=== PATIENT | male | born 1945 | race Two or more races ===

== ENCOUNTER 2023-01-06 21:13 | Inpatient (IN) | payer OTHER, MEDICAID ==
[~2023-01-06] VITALS: Ht 165.1 cm; Wt 88.2 kg
[2023-01-06 22:15] VITALS: PULSE 83; RESP 22; O2SAT 95
[2023-01-06 22:25] LABS: Basophils # (auto) 0.1 10 ^3/uL (0-0.2); Basophils % (auto) 0.5 % (0.0-2.0); Eosinophils # (auto) 0.5 10 ^3/uL (0-0.8); Hemoglobin 9.1 g/dL (13.5-17.5); Lymphocytes # (auto) 1.3 10 ^3/uL (0.4-5.4)
[2023-01-06 22:26] LABS: Eosinophils % (auto) 4.5 % (0.0-7.0); Hematocrit 29.5 % (41.0-53.0); Lymphocytes % (auto) 12.2 % (10.0-50.0); Mean Corpuscular Hemoglobin 19.7 pg (28.0-32.0); Mean Corpuscular Hgb Conc. 30.8 g/dL (32.0-36.0); Mean Corpuscular Volume 64.1 fL (80.0-100.0); Monocytes # (auto) 1.1 10 ^3/uL (0-1.3); Monocytes % (auto) 10.1 % (0.0-12.0); Neutrophils # (auto) 7.9 10 ^3/uL (1.6-8.6); Neutrophils % (auto) 72.7 % (37.0-80.0); White Blood Cell 10.8 10^3/uL (4.4-10.8)
[2023-01-06 22:27] LABS: Red Cell Distribution Width 20.8 % (11.8-14.3)
[2023-01-06 22:29] LABS: Albumin 2.8 g/dL (3.4-5.0); Calcium 9.6 mg/dL (8.5-10.1); Magnesium 2.8 mg/dL (1.6-2.6); Potassium 3.4 mmol/L (3.5-5.1)
[2023-01-06 22:34] LABS: BUN/Creatinine Ratio 17.9 (10.0-20.0); Bilirubin, Total 0.3 mg/dL (0.2-1.0); Total Protein 7.5 g/dL (6.4-8.2)
[2023-01-06 22:47] LABS: Platelet Estimate Increased
[2023-01-06 22:48] LABS: Hypochromia Moderate
[2023-01-06 22:49] LABS: Anisocytosis Slight
[2023-01-06 22:50] LABS: Stomatocytes Moderate
[2023-01-06 22:51] LABS: Ovalocytes MODE
[2023-01-06 23:47] LABS: INR 1.08 (0.9-1.15); Partial Thromboplastin Time 35.3 SEC (24.5-34.5); Prothrombin Time 11.3 sec (9.3-11.8)
[2023-01-07 00:08] LABS: Urine Bacteria NONE SEEN /hpf (None Seen); Urine Blood Negative /uL (Negative); Urine Clarity Clear (Clear); Urine Color Straw (Yellow); Urine Protein, UAD Negative (Negative); Urine Specific Gravity 1.002 (1.001-1.035); Urine Urobilinogen Normal (Negative); Urine WBC <1 /hpf (0 - 3); Urine pH 6.5 (5.0-8.0)
[2023-01-07] MEDS ORDERED: DOCUSATE SOD 100 MG CAP PO PRN (05:00)
[2023-01-07] MEDS ORDERED: ONDANSETRON HCL 4 MG/2 ML VIAL IV PRN (05:00)
[2023-01-07] MEDS ORDERED: hydrALAZINE HCL 20 MG/ML VL IV PRN (05:00)
[2023-01-07] MEDS ORDERED: ACETAMINOPHEN 325 MG TAB PO PRN (05:00)
[2023-01-07] MEDS ORDERED: HYDROcodone-ACET 5/325MG TAB PO PRN (05:00)
[2023-01-07] MEDS ORDERED: NITROGLYCERIN 0.4 MG SL TAB SL PRN (06:00)
[2023-01-07] MEDS ORDERED: POTASSIUM CHL 20 Meq TABLET PO ONE ×2 (06:00→10:00)
[2023-01-07] MEDS ORDERED: MORPHINE SULFATE INJ 2 MG/ml SYRG IV PRN (06:00)
[2023-01-07] MEDS: SODIUM CHLOR 0.9% PF (SALINE LOCK) 10ML VIAL/SYR IV SCH ×3 (06:02→22:22)
[2023-01-07 07:15] LABS: Hemoglobin 9.4 g/dL (13.5-17.5)
[2023-01-07 07:16] LABS: Basophils # (auto) 0 10 ^3/uL (0-0.2); Basophils % (auto) 0.3 % (0.0-2.0); Eosinophils # (auto) 0.2 10 ^3/uL (0-0.8); Eosinophils % (auto) 2.1 % (0.0-7.0); Hematocrit 30.1 % (41.0-53.0); Lymphocytes # (auto) 1.8 10 ^3/uL (0.4-5.4); Lymphocytes % (auto) 15.8 % (10.0-50.0); Mean Corpuscular Hgb Conc. 31.2 g/dL (32.0-36.0); Mean Corpuscular Volume 64.2 fL (80.0-100.0); Monocytes % (auto) 8.7 % (0.0-12.0); Neutrophils # (auto) 8.1 10 ^3/uL (1.6-8.6); Neutrophils % (auto) 73.1 % (37.0-80.0); Nucleated Red Blood Cells % 0.1 %; Red Blood Cells 4.69 10^6/uL (4.5-5.90); White Blood Cell 11.1 10^3/uL (4.4-10.8)
[2023-01-07 07:25] VITALS: PULSE 80; RESP 22; O2SAT 94
[2023-01-07 07:26] LABS: Albumin 2.9 g/dL (3.4-5.0); Calcium 9.6 mg/dL (8.5-10.1); Potassium 3.4 mmol/L (3.5-5.1)
[2023-01-07 07:29] LABS: BUN/Creatinine Ratio 12.1 (10.0-20.0); Bilirubin, Total 0.4 mg/dL (0.2-1.0); Total Protein 7.9 g/dL (6.4-8.2)
[2023-01-07 07:35] LABS: Red Cell Distribution Width 21.1 % (11.8-14.3)
[2023-01-07 09:10] LABS: Platelet Estimate Increased
[2023-01-07 09:11] LABS: Anisocytosis Slight; Hypochromia Moderate
[2023-01-07] MEDS: amLODIPine BESYLATE 5 MG TAB PO SCH (10:14)
[2023-01-07 10:30] LABS: Cholesterol 165 mg/dL (< 200)
[2023-01-07 10:33] LABS: HDL Cholesterol 29 mg/dL (40-59); LDL Cholesterol 125 mg/dL (< 100); Triglycerides 63 mg/dL (< 150)
[2023-01-07 12:23] LABS: % Iron Saturation 3.4 % (20-55)
[2023-01-07 19:30] VITALS: PULSE 90; RESP 17; O2SAT 95
[2023-01-07 21:26] VITALS: PULSE 90
[2023-01-07 21:51] VITALS: BP 143/77; PULSE 84; RESP 17; TEMP 97.5; O2SAT 96
[2023-01-07 21:52] VITALS: BP 143/77; PULSE 84; RESP 17; TEMP 97.5; O2SAT 96
[2023-01-07] MEDS ORDERED: TAMS0.4C36 PO (22:47)
[2023-01-07] MEDS ORDERED: AMLO1TAB22 PO (22:47)
[2023-01-07] MEDS ORDERED: BUSP15TA60 PO (22:47)
[2023-01-07] MEDS ORDERED: HYDR-3682 PO (22:47)
[2023-01-08] VITALS (8 sets, daily range): BP systolic 140–149; BP diastolic 70–94; PULSE 39–113; RESP 15–20; TEMP 97.8–98.2; O2SAT 95–98
[2023-01-08] MEDS: SODIUM CHLOR 0.9% PF (SALINE LOCK) 10ML VIAL/SYR IV SCH ×3 (06:10→21:10)
[2023-01-08 09:48] LABS: Basophils # (auto) 0.1 10 ^3/uL (0-0.2); Basophils % (auto) 0.4 % (0.0-2.0); Eosinophils # (auto) 0.3 10 ^3/uL (0-0.8); Eosinophils % (auto) 2.6 % (0.0-7.0); Hematocrit 29.9 % (41.0-53.0); Hemoglobin 9.4 g/dL (13.5-17.5); Lymphocytes % (auto) 8.8 % (10.0-50.0); Mean Corpuscular Hgb Conc. 31.4 g/dL (32.0-36.0); Mean Corpuscular Volume 63.5 fL (80.0-100.0); Monocytes % (auto) 8.5 % (0.0-12.0); Neutrophils # (auto) 9.5 10 ^3/uL (1.6-8.6); Neutrophils % (auto) 79.7 % (37.0-80.0); Nucleated Red Blood Cells % 0.1 %; Red Blood Cells 4.72 10^6/uL (4.5-5.90)
[2023-01-08 09:50] LABS: Red Cell Distribution Width 20.9 % (11.8-14.3); White Blood Cell 11.9 10^3/uL (4.4-10.8)
[2023-01-08] MEDS: amLODIPine BESYLATE 5 MG TAB PO SCH (10:00)
[2023-01-08 10:08] LABS: Albumin 2.9 g/dL (3.4-5.0); Calcium 9.7 mg/dL (8.5-10.1); Potassium 3.8 mmol/L (3.5-5.1)
[2023-01-08 10:11] LABS: BUN/Creatinine Ratio 13.9 (10.0-20.0); Bilirubin, Total 0.4 mg/dL (0.2-1.0); Total Protein 7.1 g/dL (6.4-8.2)
[2023-01-08] MEDS ORDERED: SODIUM FERR GLUC 62.5MG/5ML 125 MG in SODIUM CHL 0.9% 100 ML IV ONE (15:00)
[2023-01-08] MEDS: LORazepam 2MG/ML-1ML VIAL IV PRN (16:44)
[2023-01-08] MEDS: busPIRone HCL 10 MG TAB PO SCH (21:10)
[2023-01-08] MEDS ORDERED: HALOPERIDOL LACTATE 5 MG/ML INJ VIAL IV PRN (21:45)
[2023-01-09] MEDS: LORazepam 2MG/ML-1ML VIAL IV PRN (01:34)
[2023-01-09 05:00] VITALS: BP 133/61; PULSE 77; RESP 18; TEMP 98; O2SAT 96
[2023-01-09 05:48] LABS: Eosinophils # (auto) 0.2 10 ^3/uL (0-0.8); Hemoglobin 8.9 g/dL (13.5-17.5); Mean Corpuscular Hemoglobin 19.9 pg (28.0-32.0)
[2023-01-09 05:50] LABS: Basophils # (auto) 0.1 10 ^3/uL (0-0.2); Basophils % (auto) 0.4 % (0.0-2.0); Eosinophils % (auto) 1.2 % (0.0-7.0); Hematocrit 28.7 % (41.0-53.0); Lymphocytes # (auto) 1.6 10 ^3/uL (0.4-5.4); Lymphocytes % (auto) 11.2 % (10.0-50.0); Mean Corpuscular Hgb Conc. 31.1 g/dL (32.0-36.0); Mean Corpuscular Volume 64.1 fL (80.0-100.0); Monocytes # (auto) 1.2 10 ^3/uL (0-1.3); Monocytes % (auto) 8.9 % (0.0-12.0); Neutrophils # (auto) 10.9 10 ^3/uL (1.6-8.6); Neutrophils % (auto) 78.3 % (37.0-80.0); Red Blood Cells 4.47 10^6/uL (4.5-5.90)
[2023-01-09 06:03] LABS: Red Cell Distribution Width 20.6 % (11.8-14.3)
[2023-01-09 06:04] LABS: Potassium 3.7 mmol/L (3.5-5.1)
[2023-01-09 06:08] LABS: Albumin 2.6 g/dL (3.4-5.0); BUN/Creatinine Ratio 21.2 (10.0-20.0); Calcium 9.5 mg/dL (8.5-10.1); Magnesium 2.4 mg/dL (1.6-2.6)
[2023-01-09 06:10] LABS: Bilirubin, Total 0.4 mg/dL (0.2-1.0); Total Protein 7.3 g/dL (6.4-8.2)
[2023-01-09] MEDS: SODIUM CHLOR 0.9% PF (SALINE LOCK) 10ML VIAL/SYR IV SCH ×3 (06:38→21:28)
[2023-01-09] MEDS ORDERED: VANCOMYCIN PER PHARMACY 0 MG IV ONE (07:45)
[2023-01-09] MEDS ORDERED: MIDAZOLAM HCL 2MG/2ML 2ml VIAL (1mg/ml) ONE (07:47)
[2023-01-09] MEDS ORDERED: fentaNYL CITRATE 100 MCG/2 ML VL ONE (07:47)
[2023-01-09] MEDS ORDERED: VANCOMYCIN HCL 1000 MG VL ONE (07:47)
[2023-01-09] MEDS ORDERED: VANCOMYCIN 1GM/250ML 250 ML IV ONE (07:48)
[2023-01-09 08:00] VITALS: BP 131/79; PULSE 80; PULSE 88; RESP 18; TEMP 98; O2SAT 96
[2023-01-09] MEDS ORDERED: HALOPERIDOL LACTATE 5 MG/ML INJ VIAL IM ONE (08:00)
[2023-01-09 08:25] LABS: Carcinoembryonic Antigen 0.51 ng/mL (<5.0 OR =)
[2023-01-09 08:26] LABS: Folate (Folic Acid) 9.44 ng/mL (5.38-24)
[2023-01-09] MEDS ORDERED: LORazepam 2MG/ML-1ML VIAL IV ONE (08:30)
[2023-01-09] MEDS: busPIRone HCL 10 MG TAB PO SCH ×2 (09:40→21:26)
[2023-01-09] MEDS: amLODIPine BESYLATE 5 MG TAB PO SCH (09:40)
[2023-01-09] MEDS ORDERED: SODIUM FERR GLUC 62.5MG/5ML 125 MG in SODIUM CHL 0.9% 100 ML IV SCH (12:00)
[2023-01-09] MEDS: cefTRIAXone 1GM/50ML D5W 50 ML IV SCH ×2 (12:12→21:32)
[2023-01-09 13:00] VITALS: BP 136/70; PULSE 80; RESP 18; TEMP 98; O2SAT 96
[2023-01-09] MEDS ORDERED: DOPamine 1600MCG/ML D5W 250 ML IV SCH (13:15)
[2023-01-09 16:19] VITALS: BP 141/72; PULSE 72; RESP 20; TEMP 98.1; O2SAT 100
[2023-01-09 20:00] VITALS: BP 134/74; PULSE 86; PULSE 90; RESP 16; RESP 18; TEMP 97.8; O2SAT 96
[2023-01-09 22:00] VITALS: BP 134/74; PULSE 86; RESP 14; TEMP 97.8; O2SAT 95
[2023-01-10 05:00] VITALS: BP 144/81; PULSE 86; RESP 14; TEMP 98.1; O2SAT 96
[2023-01-10] MEDS: SODIUM CHLOR 0.9% PF (SALINE LOCK) 10ML VIAL/SYR IV SCH ×3 (05:38→22:09)
[2023-01-10 06:47] LABS: Basophils # (auto) 0 10 ^3/uL (0-0.2); Eosinophils # (auto) 0.3 10 ^3/uL (0-0.8); Hemoglobin 9.9 g/dL (13.5-17.5)
[2023-01-10 06:50] LABS: Basophils % (auto) 0.2 % (0.0-2.0); Eosinophils % (auto) 2.3 % (0.0-7.0); Hematocrit 31.8 % (41.0-53.0); Lymphocytes # (auto) 1.4 10 ^3/uL (0.4-5.4); Mean Corpuscular Hemoglobin 20.1 pg (28.0-32.0); Mean Corpuscular Hgb Conc. 31.3 g/dL (32.0-36.0); Mean Corpuscular Volume 64.1 fL (80.0-100.0); Monocytes # (auto) 1.1 10 ^3/uL (0-1.3); Monocytes % (auto) 8.4 % (0.0-12.0); Neutrophils # (auto) 10.2 10 ^3/uL (1.6-8.6); Neutrophils % (auto) 78.1 % (37.0-80.0); Red Blood Cells 4.95 10^6/uL (4.5-5.90)
[2023-01-10 07:02] LABS: Potassium 3.2 mmol/L (3.5-5.1)
[2023-01-10 07:06] LABS: Red Cell Distribution Width 20.9 % (11.8-14.3)
[2023-01-10 07:08] LABS: Albumin 2.9 g/dL (3.4-5.0); BUN/Creatinine Ratio 12.7 (10.0-20.0); Bilirubin, Total 0.5 mg/dL (0.2-1.0); Calcium 10.1 mg/dL (8.5-10.1); Total Protein 8.4 g/dL (6.4-8.2)
[2023-01-10] MEDS ORDERED: fentaNYL CITRATE 100 MCG/2 ML VL ONE (07:18)
[2023-01-10] MEDS ORDERED: KETAMINE HCL 10 ML ONE (07:18)
[2023-01-10] MEDS ORDERED: ONDANSETRON HCL 4 MG/2 ML VIAL ONE (07:18)
[2023-01-10] MEDS ORDERED: MIDAZOLAM HCL 2MG/2ML 2ml VIAL (1mg/ml) ONE (07:18)
[2023-01-10] MEDS ORDERED: PROPOFOL 10 MG/ML 20 ML IV ONE ×2 (07:18→09:28)
[2023-01-10] MEDS ORDERED: SODIUM CHLORIDE LOCK 20 ML ONE (07:18)
[2023-01-10] MEDS ORDERED: SUCCINYLCHOLINE CHLORIDE 20 MG/ML 10ML VIAL IV ONE (07:24)
[2023-01-10] MEDS ORDERED: VANCOMYCIN 1GM/250ML 250 ML IV ONE (07:33)
[2023-01-10] MEDS ORDERED: POTASSIUM EFFERVESENT TAB 25 MEQ PO ONE (08:00)
[2023-01-10] MEDS ORDERED: LIDOCAINE 2%HCL (LOCAL ANESTH.) INJ 20ML MDV ONE (08:00)
[2023-01-10] MEDS ORDERED: IODIXANOL 320MG/ML 100ML BTL IV ONE (08:00)
[2023-01-10] MEDS ORDERED: VANCOMYCIN HCL 1000 MG VL ONE (08:39)
[2023-01-10] MEDS ORDERED: HALOPERIDOL LACTATE 5 MG/ML INJ VIAL IM ONE (10:15)
[2023-01-10] MEDS ORDERED: HALOPERIDOL LACTATE 5 MG/ML INJ VIAL ONE (10:27)
[2023-01-10] MEDS ORDERED: HYDROcodone-ACET 5/325MG TAB PO PRN (12:15)
[2023-01-10] MEDS: busPIRone HCL 10 MG TAB PO SCH ×2 (12:42→21:20)
[2023-01-10] MEDS: cefTRIAXone 1GM/50ML D5W 50 ML IV SCH ×2 (12:46→21:20)
[2023-01-10] MEDS: amLODIPine BESYLATE 5 MG TAB PO SCH (12:46)
[2023-01-10] MEDS: IRON SUCROSE COMPLEX 200 MG in SODIUM CHL 0.9% 100 ML IV SCH (13:04)
[2023-01-10 13:13] VITALS: BP 191/75; PULSE 84; RESP 18; TEMP 97.4; O2SAT 95
[2023-01-10 20:00] VITALS: PULSE 103; PULSE 93; RESP 22; O2SAT 94
[2023-01-10 22:00] VITALS: BP 137/80; PULSE 93; RESP 22; TEMP 98.2; O2SAT 94
[2023-01-10] MEDS: VANCOMYCIN 1GM/250ML 250 ML IV SCH (22:04)
[2023-01-11 05:00] VITALS: BP 148/82; PULSE 87; RESP 18; TEMP 97.8; O2SAT 92
[2023-01-11] MEDS: SODIUM CHLOR 0.9% PF (SALINE LOCK) 10ML VIAL/SYR IV SCH ×2 (05:47→14:27)
[2023-01-11 07:14] LABS: Basophils # (auto) 0 10 ^3/uL (0-0.2); Eosinophils # (auto) 0.2 10 ^3/uL (0-0.8); Hemoglobin 9.4 g/dL (13.5-17.5); Mean Corpuscular Hemoglobin 19.9 pg (28.0-32.0); Nucleated Red Blood Cells % 0.1 %
[2023-01-11 07:18] LABS: Basophils % (auto) 0.2 % (0.0-2.0); Eosinophils % (auto) 1.3 % (0.0-7.0); Hematocrit 30.3 % (41.0-53.0); Lymphocytes # (auto) 1.5 10 ^3/uL (0.4-5.4); Lymphocytes % (auto) 11.6 % (10.0-50.0); Mean Corpuscular Hgb Conc. 30.9 g/dL (32.0-36.0); Mean Corpuscular Volume 64.3 fL (80.0-100.0); Monocytes # (auto) 1.3 10 ^3/uL (0-1.3); Monocytes % (auto) 10.6 % (0.0-12.0); Neutrophils # (auto) 9.6 10 ^3/uL (1.6-8.6); Neutrophils % (auto) 76.3 % (37.0-80.0); Red Blood Cells 4.72 10^6/uL (4.5-5.90); White Blood Cell 12.5 10^3/uL (4.4-10.8)
[2023-01-11 07:23] LABS: Red Cell Distribution Width 20.6 % (11.8-14.3)
[2023-01-11 07:59] LABS: Potassium 3.8 mmol/L (3.5-5.1)
[2023-01-11 08:00] VITALS: PULSE 68; PULSE 93; RESP 22; O2SAT 94
[2023-01-11 08:05] LABS: Albumin 2.5 g/dL (3.4-5.0); BUN/Creatinine Ratio 16.1 (10.0-20.0); Bilirubin, Total 0.4 mg/dL (0.2-1.0); Calcium 9.8 mg/dL (8.5-10.1); Total Protein 7.4 g/dL (6.4-8.2)
[2023-01-11 08:47] LABS: Platelet Estimate Increased
[2023-01-11 08:48] LABS: Anisocytosis Slight; Hypochromia Marked
[2023-01-11 09:00] VITALS: BP 144/81; PULSE 80; RESP 17; TEMP 98.2; O2SAT 93
[2023-01-11] MEDS: amLODIPine BESYLATE 5 MG TAB PO SCH (10:40)
[2023-01-11] MEDS: cefTRIAXone 1GM/50ML D5W 50 ML IV SCH (10:41)
[2023-01-11] MEDS: busPIRone HCL 10 MG TAB PO SCH (10:41)
[2023-01-11] MEDS: VANCOMYCIN 1GM/250ML 250 ML IV SCH (10:43)
[2023-01-11] MEDS: IRON SUCROSE COMPLEX 200 MG in SODIUM CHL 0.9% 100 ML IV SCH (12:00)
[2023-01-11 12:59] VITALS: BP 104/65; PULSE 77; RESP 20; TEMP 98.4; O2SAT 96
[2023-01-11] MEDS ORDERED: DOXY-448 PO (13:39)
[2023-01-11] MEDS ORDERED: diphenhdrAMINE HCL 50 MG/1 ML VL IV ONE (14:45)
[2023-01-11 14:54] VITALS: BP 144/81; TEMP 36.9
== END 2023-01-11 16:30 | disposition home or self-care (01) | DRG 243 ==
LOC: ER 21:13 → EDBD 21:13 → TELE 01-07 05:49 → TELE-WESTW 01-07 21:37
PROVIDERS: ADMIT Internal Medicine; ATTEND Student in an Organized Health Care Education/Training Program
PROC: 02H63JZ Insertion of Pacemaker Lead into Right Atrium, Percutaneous Approach (ICD-10-PCS; 2023-01-10)
PROC: 02HK3JZ Insertion of Pacemaker Lead into Right Ventricle, Percutaneous Approach (ICD-10-PCS; 2023-01-10)
PROC: B517YZA Fluoroscopy of Left Subclavian Vein using Other Contrast, Guidance (ICD-10-PCS; 2023-01-10)
PROC: 0JH606Z Insertion of Pacemaker, Dual Chamber into Chest Subcutaneous Tissue and Fascia, Open Approach (ICD-10-PCS; principal; 2023-01-10 07:59)
DX: I49.5 Sick sinus syndrome (principal); C85.91 Non-Hodgkin lymphoma, unspecified, lymph nodes of head, face, and neck; E44.0 Moderate protein-calorie malnutrition; F03.94 Unspecified dementia, unspecified severity, with anxiety; E87.6 Hypokalemia; I10 Essential (primary) hypertension; E78.5 Hyperlipidemia, unspecified; D50.9 Iron deficiency anemia, unspecified; N40.0 Benign prostatic hyperplasia without lower urinary tract symptoms; W07.XXXA Fall from chair, initial encounter; S09.90XA Unspecified injury of head, initial encounter; Z80.0 Family history of malignant neoplasm of digestive organs; Z92.21 Personal history of antineoplastic chemotherapy; Y93.89 Activity, other specified; Y92.89 Other specified places as the place of occurrence of the external cause; Y99.8 Other external cause status; Z68.32 Body mass index [BMI] 32.0-32.9, adult
CPT/HCPCS: 36415; 70450; 71045; 76775; 80053; 80061; 81001; 82378; 82607; 82746; 83036; 83540; 83550; 83615; 83735; 83880; 84443; 84484; 85025; 85045; 85610; 85730; 86850; 86900; 86901; 93005; 93306; 93886; 97110; 97116; 97163; 97530; 99152; A4565; C1894; G0378; J0330; J0696; J1756; J2250; J2405; J2704; Q9967

== ENCOUNTER 2023-02-23 17:46 | Inpatient (IN) | payer OTHER, MEDICAID ==
[~2023-02-23] VITALS: Ht 172.7 cm; Wt 73.4 kg
[~2023-02-23 17:46] MED LIST: AMLO1TAB22 PO; BUSP15TA60 PO; DOXY-448 PO; HYDR-3682 PO; TAMS0.4C36 PO
[2023-02-23 18:30] VITALS: PULSE 79; RESP 14; O2SAT 95
[2023-02-23] MEDS ORDERED: IOHEXOL 300 MG/ML 100ML BOTTLE IJ ONE (18:49)
[2023-02-23 18:51] LABS: Urine Bacteria NONE SEEN /hpf (None Seen); Urine Blood Negative /uL (Negative); Urine Clarity Clear (Clear); Urine Color Yellow (Yellow); Urine Mucus FEW (None Seen); Urine Protein, UAD Negative (Negative); Urine Specific Gravity 1.011 (1.001-1.035); Urine Urobilinogen Normal (Negative); Urine WBC 2 /hpf (0 - 3); Urine pH 8.5 (5.0-8.0)
[2023-02-23 19:23] LABS: Basophils # (auto) 0 10 ^3/uL (0-0.2); Basophils % (auto) 0.2 % (0.0-2.0); Eosinophils # (auto) 0.1 10 ^3/uL (0-0.8); Hemoglobin 8.1 g/dL (13.5-17.5); Lymphocytes # (auto) 1.6 10 ^3/uL (0.4-5.4); Mean Corpuscular Volume 62.5 fL (80.0-100.0); Neutrophils # (auto) 5.5 10 ^3/uL (1.6-8.6); Neutrophils % (auto) 67.5 % (37.0-80.0)
[2023-02-23 19:24] LABS: Eosinophils % (auto) 1.4 % (0.0-7.0); Hematocrit 26.4 % (41.0-53.0); Lymphocytes % (auto) 19.2 % (10.0-50.0); Mean Corpuscular Hemoglobin 19.3 pg (28.0-32.0); Mean Corpuscular Hgb Conc. 30.8 g/dL (32.0-36.0); Monocytes % (auto) 11.7 % (0.0-12.0); Red Blood Cells 4.23 10^6/uL (4.5-5.90); White Blood Cell 8.1 10^3/uL (4.4-10.8)
[2023-02-23 19:26] LABS: Red Cell Distribution Width 20.7 % (11.8-14.3)
[2023-02-23 19:30] VITALS: PULSE 74; RESP 20; O2SAT 93
[2023-02-23 19:31] LABS: Alanine Aminotransferase 60 U/L (7-40); Alkaline Phosphatase 152 U/L (46-116); Anion Gap 4 (5-15); BUN/Creatinine Ratio 14.9 (10.0-20.0); Blood Urea Nitrogen 10 mg/dL (9-23); Calcium 9.1 mg/dL (8.5-10.1); Carbon Dioxide 31 mmol/L (20-30); Chloride 103 mmol/L (98-107); Glucose 110 mg/dL (74-106); Sodium 138 mmol/L (136-145)
[2023-02-23 19:32] LABS: Albumin 3.5 g/dL (3.2-4.8); Aspartate Aminotransferase 35 U/L (13-40); Bilirubin, Total 0.3 mg/dL (0.2-1.0); Total Protein 6.5 g/dL (5.7-8.2)
[2023-02-23 21:05] VITALS: PULSE 74; RESP 18; O2SAT 96
[2023-02-23] MEDS ORDERED: ONDANSETRON HCL 4 MG/2 ML VIAL IV PRN (21:30)
[2023-02-23] MEDS ORDERED: IBUPROFEN 600 MG TAB PO PRN (21:30)
[2023-02-23] MEDS ORDERED: MORPHINE SULFATE INJ 2 MG/ml SYRG IV PRN (21:30)
[2023-02-23] MEDS: D5W/SOD CHLO 0.9% 1,000 ML IV SCH (22:27)
[2023-02-23] MEDS: FAMOTIDINE (10MG/ML) 2ML VL IV SCH (22:27)
[2023-02-24] VITALS (7 sets, daily range): BP systolic 121–152; BP diastolic 58–93; PULSE 61–81; RESP 16–20; TEMP 97.6–98.6; O2SAT 93–97
[2023-02-24 07:02] LABS: Basophils # (auto) 0 10 ^3/uL (0-0.2); Eosinophils # (auto) 0.1 10 ^3/uL (0-0.8); Hemoglobin 8.2 g/dL (13.5-17.5); Lymphocytes # (auto) 1.6 10 ^3/uL (0.4-5.4); White Blood Cell 8.7 10^3/uL (4.4-10.8)
[2023-02-24 07:08] LABS: Basophils % (auto) 0.2 % (0.0-2.0); Eosinophils % (auto) 1.6 % (0.0-7.0); Hematocrit 25.6 % (41.0-53.0); Lymphocytes % (auto) 18.1 % (10.0-50.0); Mean Corpuscular Hemoglobin 20.1 pg (28.0-32.0); Mean Corpuscular Hgb Conc. 31.9 g/dL (32.0-36.0); Mean Corpuscular Volume 62.8 fL (80.0-100.0); Monocytes % (auto) 11.6 % (0.0-12.0); Neutrophils # (auto) 5.9 10 ^3/uL (1.6-8.6); Neutrophils % (auto) 68.5 % (37.0-80.0); Nucleated Red Blood Cells % 0.1 %; Red Blood Cells 4.08 10^6/uL (4.5-5.90)
[2023-02-24 07:09] LABS: Alanine Aminotransferase 52 U/L (7-40); Albumin 3.6 g/dL (3.2-4.8); Alkaline Phosphatase 149 U/L (46-116); Anion Gap 6 (5-15); Aspartate Aminotransferase 25 U/L (13-40); BUN/Creatinine Ratio 14.1 (10.0-20.0); Bilirubin, Total 0.3 mg/dL (0.2-1.0); Blood Urea Nitrogen 9 mg/dL (9-23); Calcium 9.3 mg/dL (8.5-10.1); Carbon Dioxide 29 mmol/L (20-30); Chloride 105 mmol/L (98-107); Glucose 94 mg/dL (74-106); Potassium 3.8 mmol/L (3.5-5.1); Sodium 140 mmol/L (136-145); Total Protein 6.7 g/dL (5.7-8.2)
[2023-02-24 07:16] LABS: Red Cell Distribution Width 20.6 % (11.8-14.3)
[2023-02-24 09:37] LABS: Anisocytosis Slight; Platelet Estimate Adequate
[2023-02-24] MEDS: FAMOTIDINE (10MG/ML) 2ML VL IV SCH ×2 (09:37→21:04)
[2023-02-24 09:38] LABS: Hypochromia Marked
[2023-02-24] MEDS: HYDROcodone-ACET 5/325MG TAB PO PRN (12:07)
[2023-02-24] MEDS ORDERED: BUSP15TA60 PO (12:10)
[2023-02-24] MEDS: busPIRone HCL 10 MG TAB PO SCH ×2 (14:06→21:04)
[2023-02-24] MEDS: D5W/SOD CHLO 0.9% 1,000 ML IV SCH (15:57)
[2023-02-24] MEDS: TAMSULOSIN HYDROCHLORIDE 0.4 MG CAP PO SCH ×2 (18:00→18:30)
[2023-02-24] MEDS: ZOLPIDEM TARTRATE 5 MG TAB PO PRN (21:05)
[2023-02-25] VITALS (7 sets, daily range): BP systolic 118–150; BP diastolic 60–76; PULSE 75–102; RESP 17–18; TEMP 96.9–99.1; O2SAT 93–99
[2023-02-25] MEDS: D5W/SOD CHLO 0.9% 1,000 ML IV SCH ×2 (05:40→23:30)
[2023-02-25] MEDS: busPIRone HCL 10 MG TAB PO SCH ×4 (05:40→21:15)
[2023-02-25] MEDS: amLODIPine BESYLATE 5 MG TAB PO SCH ×2 (10:00→10:17)
[2023-02-25] MEDS: FAMOTIDINE (10MG/ML) 2ML VL IV SCH ×2 (10:00→21:14)
[2023-02-25] MEDS: TAMSULOSIN HYDROCHLORIDE 0.4 MG CAP PO SCH (17:55)
[2023-02-25] MEDS ORDERED: HALOPERIDOL LACTATE 5 MG/ML INJ VIAL IM ONE (18:45)
[2023-02-26] MEDS: ZOLPIDEM TARTRATE 5 MG TAB PO PRN ×2 (00:33→22:19)
[2023-02-26] MEDS: busPIRone HCL 10 MG TAB PO SCH ×3 (06:00→21:48)
[2023-02-26 08:00] VITALS: PULSE 58; RESP 18; O2SAT 96
[2023-02-26 09:00] VITALS: BP 134/64; PULSE 75; RESP 17; TEMP 99.9; O2SAT 96
[2023-02-26] MEDS: FAMOTIDINE (10MG/ML) 2ML VL IV SCH ×2 (10:24→21:47)
[2023-02-26] MEDS: amLODIPine BESYLATE 5 MG TAB PO SCH (10:24)
[2023-02-26] MEDS: HYDROcodone-ACET 5/325MG TAB PO PRN ×3 (10:25→22:19)
[2023-02-26 13:00] VITALS: BP 131/67; PULSE 86; RESP 18; TEMP 99.7; O2SAT 94
[2023-02-26 17:00] VITALS: BP 141/69; PULSE 86; RESP 17; TEMP 98.7; O2SAT 96
[2023-02-26] MEDS: TAMSULOSIN HYDROCHLORIDE 0.4 MG CAP PO SCH (17:51)
[2023-02-26] MEDS: D5W/SOD CHLO 0.9% 1,000 ML IV SCH (17:59)
[2023-02-26 20:00] VITALS: BP 138/68; PULSE 80; RESP 17; TEMP 98.7; O2SAT 95
[2023-02-26 22:22] VITALS: BP 123/72; PULSE 78; RESP 16; TEMP 97.8; O2SAT 100
[2023-02-27 05:00] VITALS: BP 151/74; PULSE 89; RESP 17; TEMP 98.4; O2SAT 98
[2023-02-27] MEDS: busPIRone HCL 10 MG TAB PO SCH ×3 (05:44→20:04)
[2023-02-27 08:00] VITALS: PULSE 64; RESP 16; O2SAT 96
[2023-02-27 09:00] VITALS: BP 124/64; PULSE 74; RESP 19; TEMP 98.3; O2SAT 97
[2023-02-27 09:26] LABS: Hepatitis B Surface Antigen Negative (Negative)
[2023-02-27 09:47] LABS: Hepatitis C Antibody Negative (Negative)
[2023-02-27] MEDS: D5W/SOD CHLO 0.9% 1,000 ML IV SCH (09:52)
[2023-02-27] MEDS: amLODIPine BESYLATE 5 MG TAB PO SCH (09:54)
[2023-02-27] MEDS: FAMOTIDINE (10MG/ML) 2ML VL IV SCH (09:54)
[2023-02-27] MEDS: HYDROcodone-ACET 5/325MG TAB PO PRN ×3 (09:55→20:03)
[2023-02-27 13:00] VITALS: BP 136/60; PULSE 78; RESP 18; TEMP 98.7; O2SAT 100
[2023-02-27] MEDS: TAMSULOSIN HYDROCHLORIDE 0.4 MG CAP PO SCH (17:19)
[2023-02-27 20:00] VITALS: BP 112/65; PULSE 78; RESP 16; RESP 18; TEMP 98.7; O2SAT 99
[2023-02-27] MEDS: ZOLPIDEM TARTRATE 5 MG TAB PO PRN (20:03)
[2023-02-27 22:00] VITALS: BP 110/65; PULSE 57; RESP 16; TEMP 97.2; O2SAT 94
[2023-02-28] MEDS: D5W/SOD CHLO 0.9% 1,000 ML IV SCH (01:30)
[2023-02-28] MEDS: HYDROcodone-ACET 5/325MG TAB PO PRN ×2 (04:12→08:38)
[2023-02-28] MEDS: busPIRone HCL 10 MG TAB PO SCH ×2 (04:12→11:42)
[2023-02-28 05:00] VITALS: BP 144/73; PULSE 73; RESP 16; TEMP 97.7; O2SAT 97
[2023-02-28 08:00] VITALS: BP 155/82; PULSE 82; RESP 16; TEMP 98.7; O2SAT 98
[2023-02-28] MEDS: amLODIPine BESYLATE 5 MG TAB PO SCH (08:38)
[2023-02-28 12:02] VITALS: BP 103/70; PULSE 83; RESP 20; TEMP 98.7; O2SAT 97
[2023-02-28] MEDS ORDERED: LORazepam 2MG/ML-1ML VIAL IV ONE (12:30)
[2023-02-28] MEDS ORDERED: GASTROGRAFIN 30 ML SOL ONE ×2 (16:08→16:18)
[2023-02-28] MEDS: TAMSULOSIN HYDROCHLORIDE 0.4 MG CAP PO SCH (18:17)
== END 2023-02-28 18:40 | disposition hospice, home (50) | DRG 395 ==
LOC: ER 17:46 → OVERFLOW 21:28 → WEST WING 23:28
PROVIDERS: ADMIT Nurse Practitioner Family; ATTEND Family Medicine
DX: K40.90 Unilateral inguinal hernia, without obstruction or gangrene, not specified as recurrent (principal); D50.9 Iron deficiency anemia, unspecified; F41.9 Anxiety disorder, unspecified; I10 Essential (primary) hypertension; Z85.028 Personal history of other malignant neoplasm of stomach; Z85.038 Personal history of other malignant neoplasm of large intestine; Z85.72 Personal history of non-Hodgkin lymphomas; Z87.891 Personal history of nicotine dependence
CPT/HCPCS: 36415; 74177; 80053; 81001; 85025; 86803; 86850; 86900; 86901; 87340; A4565; G0378; J3490; J7042